=== PATIENT | male | born 1940 | race Caucasian/White ===

== ENCOUNTER → 2016-09-24 | Outpatient (CLI) | payer OTHER ==
[~2016-09-24] MED LIST: ADVAIR HFA120 INHALA IH; AMLODIPINE BESYL5 MG PO; ASPIRIN81 M2 PO; ATROVENT 00.5 MG/2.5 IH; AUGMENTIN875 MG PO; CARDURA2 M1 PO; CYANOCOBALAM1000 MCG PO; DAILY MULTIPLE1 EACH PO; DIABETIC TUSSI118 ML PO; DITROPAN5 MG PO; DOCUSATE SODIU100 MG PO; DOXAZOSIN MESYLA8 MG PO; DUONEB 2.5-0.5 M3 ML AEROSOL; FAMOTIDINE20 MG PO; FERROUS SULFAT325 MG PO; FOLIC ACID0.4 MG PO; GABAPENTIN300 MG PO; HUMULIN; HUMULIN N100 UNITS/ SC; LINEZOLID600 MG PO; LOPID PO; LOPID600 MG PO; MELATONIN3 MG PO; NAPROXEN500 MG PO; NON-ASPIRIN PA325 MG PO; NORVASC10 MG PO; NOVOLIN N100 UNITS/ SC; NOVOLOG PE100 UNITS/ SC; OMEPRAZOLE20 MG PO; PROVENTIL,2.5 MG/3 M IH; SANTYL30 GM TP; SENNA-S TABLET1 EACH PO; SIMVASTATIN10 MG PO; TAMSULOSIN HCL0.4 MG PO; TYLENOL REGULA325 MG PO; VENTOLIN HFA18 GM IH; Xylocaine 5% TP
== END | disposition home or self-care (01) ==
LOC: AMB 09:58
PROC: 0D20XUZ Change Feeding Device in Upper Intestinal Tract, External Approach (ICD-10-PCS; principal; 2016-09-24)
DX: K94.23 Gastrostomy malfunction (principal); R10.13 Epigastric pain
CPT/HCPCS: 99212; B4087

== ENCOUNTER 2016-12-24 16:38 | Emergency (ER) | payer OTHER ==
[~2016-12-24] VITALS: Ht 167.6 cm; Wt 68.0 kg
[2016-12-24 17:38] LABS: CARBON DIOXIDE (BICARBONATE) 30.6 MEQ/L (20-31)
[2016-12-24 17:40] LABS: HEMATOCRIT 43.4 % (38.0-50.0); MCH 28.6 PG (29.0-34.0); MCHC 32.3 G/DL (30.0-36.0); MCV 88.8 FL (86-99); MEAN PLAT.VOLUME 13.1 uM^3 (9.0-12.4); PLATELET COUNT 178 K/uL (156-360); RBC DIS.WIDTH-CV 13.5 % (11.8-14.6); RBC DIS.WIDTH-SD 43.9 % (39-53); RED BLOOD COUNT 4.89 M/uL (4.00-5.50); WHITE BLOOD COUNT 9.8 K/uL (4.1-10.2)
[2016-12-24 17:50] LABS: CHLORIDE 101 mEq/L (99-109); POTASSIUM 5.1 mEq/L (3.7-5.4); SODIUM 140 mEq/L (136-147)
[2016-12-24 17:52] LABS: GLUCOSE 616 mg/dL (70-99)
[2016-12-24 17:53] LABS: ANION GAP 15 MEQ/L (2-14)
[2016-12-24 17:55] LABS: GFR ESTIMATE (CALCULATED) > 59 mL/min/
[2016-12-24 17:56] LABS: UREA NITROGEN (BUN) 41 mg/dL (9-23)
[2016-12-24 18:09] LABS: ADD MIUA? NO; BILIRUBIN NEGATIVE; BLOOD NEGATIVE; COLOR YELLOW ((YELLOW)); GLUCOSE (STRIP) >=500; KETONES 20; LEUKOCYTES NEGATIVE; NITRITE NEGATIVE; PROTEIN (STRIP) NEGATIVE; SPECIFIC GRAVITY 1.028 (1.000-1.030); UCUL ADDED? NO; UROBILINOGEN 0.2 MG/DL (0.2-1.0)
[2016-12-24 19:58] LABS: POINT-OF-CARE METER ID UU13113702
[2016-12-24 20:23] VITALS: BP 128/78
== END 2016-12-24 20:33 | disposition home or self-care (01) ==
LOC: EME 16:38
PROVIDERS: Emergency Medicine
DX: E11.65 Type 2 diabetes mellitus with hyperglycemia (principal); B02.9 Zoster without complications; Z79.4 Long term (current) use of insulin; I10 Essential (primary) hypertension
CPT/HCPCS: 80048; 81003; 82010; 82803; 82948; 85027; 99281; 99285; J7030

== ENCOUNTER 2017-01-10 18:33 | Emergency (ER) | payer OTHER ==
[~2017-01-10] VITALS: Ht 180.3 cm; Wt 74.1 kg
[2017-01-10 18:54] LABS: POINT-OF-CARE METER ID UU13113747
[2017-01-10 19:53] LABS: HEMATOCRIT 41.9 % (38.0-50.0); MCH 28.7 PG (29.0-34.0); MCHC 32.5 G/DL (30.0-36.0); MCV 88.4 FL (86-99); RBC DIS.WIDTH-SD 45.1 % (39-53); RED BLOOD COUNT 4.74 M/uL (4.00-5.50); WHITE BLOOD COUNT 6.6 K/uL (4.1-10.2)
[2017-01-10 19:56] LABS: ADD MIUA? NO; BILIRUBIN NEGATIVE; BLOOD NEGATIVE; COLOR YELLOW ((YELLOW)); GLUCOSE (STRIP) NEGATIVE; KETONES NEGATIVE; LEUKOCYTES NEGATIVE; NITRITE NEGATIVE; PROTEIN (STRIP) NEGATIVE; SPECIFIC GRAVITY 1.013 (1.000-1.030); UCUL ADDED? NO; UROBILINOGEN 0.2 MG/DL (0.2-1.0)
[2017-01-10 20:02] LABS: CHLORIDE 104 mEq/L (99-109); SODIUM 142 mEq/L (136-147)
[2017-01-10 20:03] LABS: MEAN PLAT.VOLUME 10.8 uM^3 (9.0-12.4); PLATELET COUNT 268 K/uL (156-360)
[2017-01-10 20:04] LABS: GLUCOSE 81 mg/dL (70-99)
[2017-01-10 20:05] LABS: ANION GAP 8 MEQ/L (2-14)
[2017-01-10 20:06] LABS: TOTAL BILIRUBIN 0.3 mg/dL (0.0-1.0)
[2017-01-10 20:07] LABS: ALKALINE PHOSPHATASE 109 IU/L (3-129)
[2017-01-10 20:08] LABS: GFR ESTIMATE (CALCULATED) > 59 mL/min/
[2017-01-10 20:09] LABS: UREA NITROGEN (BUN) 24 mg/dL (9-23)
[2017-01-10 20:38] LABS: POINT-OF-CARE METER ID UU13113747
[2017-01-10 21:24] VITALS: BP 129/65
== END 2017-01-10 21:26 | disposition home or self-care (01) ==
LOC: EME 18:33
PROVIDERS: Emergency Medicine
DX: E11.649 Type 2 diabetes mellitus with hypoglycemia without coma (principal); R51 Headache; F79 Unspecified intellectual disabilities; I10 Essential (primary) hypertension; Z79.4 Long term (current) use of insulin
CPT/HCPCS: 71010; 80053; 81003; 82948; 85027; 99281; 99285

== ENCOUNTER → 2017-04-10 | Outpatient (CLI) | payer OTHER | END | disposition home or self-care (01) | DX: R13.14 Dysphagia, pharyngoesophageal phase (principal); R13.11 Dysphagia, oral phase; K21.9 Gastro-esophageal reflux disease without esophagitis; Z87.01 Personal history of pneumonia (recurrent) | CPT/HCPCS: 92611 GN; G8996 GN; G8997 GN; G8998 GN ==

== ENCOUNTER 2017-09-04 14:29 | Inpatient (IN) | payer OTHER ==
[~2017-09-04] VITALS: Ht 172.7 cm; Wt 79.0 kg
[2017-09-04 15:59] LABS: BASOPHIL (%) 0.2 % (0-1); EOSINOPHIL (%) 0.2 % (0-5); HEMATOCRIT 36.9 % (38.0-50.0); HEMOGLOBIN 12.1 G/DL (12.5-16.6); IMMATURE GRANULOCYTE (%) 0.5 % (0.0-0.7); LYMPHOCYTE (%) 5.6 % (15-42); LYMPHOCYTE COUNT 0.5 K/uL (1.0-2.8); MCH 28.5 PG (29.0-34.0); MCHC 32.8 G/DL (30.0-36.0); MONOCYTE (%) 9.8 % (3-12); MONOCYTE COUNT 0.8 K/uL (0-0.8); NEUTROPHIL (%) 83.7 % (45-76); NEUTROPHIL COUNT 6.9 K/uL (1.8-6.4); PLATELET COUNT 233 K/uL (156-360); RBC DIS.WIDTH-CV 13.9 % (11.8-14.6); RBC DIS.WIDTH-SD 44.7 % (39-53); RED BLOOD COUNT 4.24 M/uL (4.00-5.50); WHITE BLOOD COUNT 8.2 K/uL (4.1-10.2)
[2017-09-04 16:05] LABS: INTER. NORMALIZED RATIO 1.2
[2017-09-04 16:08] LABS: PTT 29.5 SEC (25-37)
[2017-09-04 16:11] LABS: ALBUMIN 3.2 g/dL (3.2-4.8); CHLORIDE 97 mEq/L (99-109); POTASSIUM 4.8 mEq/L (3.7-5.4); SODIUM 139 mEq/L (136-147)
[2017-09-04 16:13] LABS: GLUCOSE 205 mg/dL (70-99)
[2017-09-04 16:14] LABS: TOTAL PROTEIN 7.3 g/dL (6.4-8.3)
[2017-09-04 16:15] LABS: TOTAL BILIRUBIN 0.3 mg/dL (0.0-1.0)
[2017-09-04 16:16] LABS: APPEARANCE SL.HAZY ((CLEAR)); BILIRUBIN NEGATIVE; BLOOD MODERATE; COLOR YELLOW ((YELLOW)); GLUCOSE (STRIP) >=500; KETONES 5; LEUKOCYTES NEGATIVE; NITRITE NEGATIVE; PROTEIN (STRIP) 100; SPECIFIC GRAVITY 1.024 (1.000-1.030)
[2017-09-04 16:17] LABS: ALKALINE PHOSPHATASE 114 IU/L (3-129); GFR ESTIMATE (CALCULATED) > 59 mL/min/ (58.99-99999)
[2017-09-04 16:18] LABS: UREA NITROGEN (BUN) 41 mg/dL (9-23)
[2017-09-04 16:19] LABS: AST (GOT) 22 IU/L (2-34)
[2017-09-04 16:20] LABS: ALT (GPT) 17 IU/L (3-49); LIPASE 3 U/L (1.0-51.0)
[2017-09-04 16:21] LABS: TROP-I INTERPRETATION NEGATIVE; TROPONIN-I 0.03 ng/mL (0.0-0.30)
[2017-09-04 16:26] LABS: BACTERIA NONE SEEN /HPF; EPITHELIAL CELLS RARE /HPF; MUCUS TRACE /LPF; RED BLOOD CELLS TNTC /HPF (0-5); UCUL ADDED? YES
[2017-09-04] MEDS ORDERED: LANTUS 10100 UNITS/ SC (18:58)
[2017-09-04] MEDS ORDERED: ALBUTEROL2.5 MG/3 M IH (18:59)
[2017-09-04] MEDS ORDERED: AMLODIPINE BESY10 MG GT (19:00)
[2017-09-04] MEDS ORDERED: ATROVENT 00.5 MG/2.5 IH (19:00)
[2017-09-04] MEDS ORDERED: PRILOSEC10 M1 GT (19:01)
[2017-09-04] MEDS ORDERED: MELATONIN1 MG/4 ML GT (19:01)
[2017-09-04] MEDS ORDERED: FLOMAX0.4 MG GT (19:01)
[2017-09-04] MEDS ORDERED: NEURONTIN250 MG/5 M GT (19:02)
[2017-09-04] MEDS ORDERED: GLUCOPHAGE500 MG GT (19:02)
[2017-09-04] MEDS ORDERED: BIOTENE PBF473 ML MM (19:02)
[2017-09-04] MEDS ORDERED: ANTI-DIARR1 MG/7.5 M PO (19:03)
[2017-09-04] MEDS ORDERED: CIPRO500 MG GT (19:03)
[2017-09-04] MEDS ORDERED: CHILDREN'S160 MG/14 GT (19:04)
[2017-09-04] MEDS ORDERED: VOLTAREN 1% GE100 GM TP (19:04)
[2017-09-04 19:50] VITALS: BP 108/59
[2017-09-04 21:31] LABS: HEMATOCRIT 30.8 % (38.0-50.0); HEMOGLOBIN 10.2 G/DL (12.5-16.6); MCH 29.7 PG (29.0-34.0); MCHC 33.1 G/DL (30.0-36.0); MCV 89.5 FL (86-99); PLATELET COUNT 207 K/uL (156-360); RBC DIS.WIDTH-SD 45.6 % (39-53); RED BLOOD COUNT 3.44 M/uL (4.00-5.50); WHITE BLOOD COUNT 7.5 K/uL (4.1-10.2)
[2017-09-04 21:50] VITALS: BP 108/59
[2017-09-05] VITALS: BP 118/58
[2017-09-05 04:07] VITALS: BP 109/55
[2017-09-05 06:11] LABS: CHLORIDE 106 MEQ/L (99-109); CREATININE 0.7 MG/DL (0.6-1.3); GFR ESTIMATE (CALCULATED) > 59 mL/min/ (58.99-99999); SODIUM 142 MEQ/L (136-147); UREA NITROGEN (BUN) 30 mg/dL (9-23)
[2017-09-05 06:14] LABS: GLUCOSE 117 mg/dL (70-99)
[2017-09-05 07:21] VITALS: BP 97/59
[2017-09-05 12:53] VITALS: BP 104/60
[2017-09-05 15:10] VITALS: BP 125/68
[2017-09-05 19:35] VITALS: BP 128/70
[2017-09-06 00:01] VITALS: BP 112/64
[2017-09-06 04:25] VITALS: BP 120/64
[2017-09-06 07:32] VITALS: BP 112/71
[2017-09-06 14:55] VITALS: BP 110/68
[2017-09-06 21:00] VITALS: BP 116/68
[2017-09-07] VITALS (7 sets, daily range): BP systolic 100–136; BP diastolic 68–84
[2017-09-07 05:37] LABS: BASOPHIL (%) 0.4 % (0-1); EOSINOPHIL (%) 1.9 % (0-5); EOSINOPHIL COUNT 0.1 K/uL (0-0.3); HEMATOCRIT 36.9 % (38.0-50.0); HEMOGLOBIN 11.5 G/DL (12.5-16.6); LYMPHOCYTE (%) 16.8 % (15-42); LYMPHOCYTE COUNT 1.2 K/uL (1.0-2.8); MCHC 31.2 G/DL (30.0-36.0); MCV 89.8 FL (86-99); MONOCYTE (%) 8.1 % (3-12); MONOCYTE COUNT 0.6 K/uL (0-0.8); NEUTROPHIL (%) 71.8 % (45-76); PLATELET COUNT 324 K/uL (156-360); RBC DIS.WIDTH-CV 14.6 % (11.8-14.6); RBC DIS.WIDTH-SD 47.6 % (39-53); RED BLOOD COUNT 4.11 M/uL (4.00-5.50); WHITE BLOOD COUNT 6.9 K/uL (4.1-10.2)
[2017-09-07 06:03] LABS: ALBUMIN 2.5 G/DL (3.2-4.8); ALKALINE PHOSPHATASE 83 IU/L (3-129); ALT (GPT) 23 IU/L (3-49); AST (GOT) 22 IU/L (2-34); CHLORIDE 108 MEQ/L (99-109); CREATININE 0.7 MG/DL (0.6-1.3); GFR ESTIMATE (CALCULATED) > 59 mL/min/ (58.99-99999); GLUCOSE 202 mg/dL (70-99); POTASSIUM 4.9 MEQ/L (3.7-5.4); SODIUM 146 MEQ/L (136-147); TOTAL BILIRUBIN 0.2 MG/DL (0.0-1.0); TOTAL PROTEIN 5.5 G/DL (6.4-8.3); UREA NITROGEN (BUN) 32 mg/dL (9-23)
[2017-09-08 01:27] VITALS: BP 118/65
[2017-09-08 05:40] VITALS: BP 132/75
[2017-09-08 06:04] LABS: HEMATOCRIT 38.4 % (38.0-50.0); MCH 27.9 PG (29.0-34.0); MCHC 31.3 G/DL (30.0-36.0); MCV 89.3 FL (86-99); PLATELET COUNT 406 K/uL (156-360); RBC DIS.WIDTH-CV 14.6 % (11.8-14.6); RBC DIS.WIDTH-SD 47.8 % (39-53); WHITE BLOOD COUNT 9.2 K/uL (4.1-10.2)
[2017-09-08 06:28] LABS: ALBUMIN 2.7 G/DL (3.2-4.8); ALKALINE PHOSPHATASE 98 IU/L (3-129); ALT (GPT) 33 IU/L (3-49); CHLORIDE 107 MEQ/L (99-109); CREATININE 0.7 MG/DL (0.6-1.3); GFR ESTIMATE (CALCULATED) > 59 mL/min/ (58.99-99999); GLUCOSE 253 mg/dL (70-99); POTASSIUM 5.2 MEQ/L (3.7-5.4); SODIUM 147 MEQ/L (136-147); TOTAL BILIRUBIN 0.2 MG/DL (0.0-1.0); TOTAL PROTEIN 5.8 G/DL (6.4-8.3); UREA NITROGEN (BUN) 38 mg/dL (9-23)
[2017-09-08 06:34] LABS: AST (GOT) 35 IU/L (2-34)
[2017-09-08] MEDS ORDERED: AUGMENTIN875 MG PO (06:54)
[2017-09-08 08:11] VITALS: BP 129/80
[2017-09-08 12:02] VITALS: BP 115/70
[2017-09-08 15:51] VITALS: BP 115/70
== END 2017-09-08 18:10 | disposition home or self-care (01) | DRG 690 ==
LOC: EME 14:29 → 4EAST 19:46 → EDOF 19:46 → 4EAST 19:46 → ENRESERV 20:19 → 4EAST 21:42 → ENPENDDIS 09-08 → 4EAST 09-08 18:10
PROVIDERS: Emergency Medicine; Hospitalist; Internal Medicine
DX: N39.0 Urinary tract infection, site not specified (principal); E11.9 Type 2 diabetes mellitus without complications; I10 Essential (primary) hypertension; K56.7 Ileus, unspecified; Z93.1 Gastrostomy status; J98.11 Atelectasis; R78.81 Bacteremia; B95.4 Other streptococcus as the cause of diseases classified elsewhere
CPT/HCPCS: 71045; 74177; 80048; 80053; 81003; 82948; 83605; 83690; 84484; 85025; 85027; 85610; 85730; 87040; 87076; 87077; 87086; 87185; 87801; 93306; 94640; 94760; 94799; 99281; 99285; A6214; J0696; J1644; J1815; J1956; J2405; J2543; J3370; J7030; J7040; S0028

== ENCOUNTER 2017-09-09 09:27 | Inpatient (IN) | payer OTHER ==
[~2017-09-09] VITALS: Ht 167.6 cm; Wt 75.8 kg
[~2017-09-09 09:27] MED LIST changes: +ALBUTEROL2.5 MG/3 M IH; +AMLODIPINE BESY10 MG GT; +ANTI-DIARR1 MG/7.5 M PO; +BIOTENE PBF473 ML MM; +CHILDREN'S160 MG/14 GT; +CIPRO500 MG GT; +FLOMAX0.4 MG GT; +GLUCOPHAGE500 MG GT; +LANTUS 10100 UNITS/ SC; +MELATONIN1 MG/4 ML GT; +NEURONTIN250 MG/5 M GT; +PRILOSEC10 M1 GT; +VOLTAREN 1% GE100 GM TP
[2017-09-09 10:06] LABS: BASOPHIL (%) 0.5 % (0-1); BASOPHIL COUNT 0.1 K/uL (0-0.1); EOSINOPHIL (%) 1.7 % (0-5); EOSINOPHIL COUNT 0.2 K/uL (0-0.3); HEMATOCRIT 36.9 % (38.0-50.0); HEMOGLOBIN 11.7 G/DL (12.5-16.6); IMMATURE GRANULOCYTE (%) 1.5 % (0.0-0.7); LYMPHOCYTE COUNT 1.3 K/uL (1.0-2.8); MCH 28.7 PG (29.0-34.0); MCHC 31.7 G/DL (30.0-36.0); MCV 90.7 FL (86-99); MONOCYTE (%) 5.8 % (3-12); MONOCYTE COUNT 0.6 K/uL (0-0.8); NEUTROPHIL (%) 78.5 % (45-76); NEUTROPHIL COUNT 8.6 K/uL (1.8-6.4); PLATELET COUNT 442 K/uL (156-360); RBC DIS.WIDTH-CV 14.6 % (11.8-14.6); RBC DIS.WIDTH-SD 49.1 % (39-53); RED BLOOD COUNT 4.07 M/uL (4.00-5.50)
[2017-09-09 10:18] LABS: CHLORIDE 103 mEq/L (99-109); SODIUM 144 mEq/L (136-147)
[2017-09-09 10:19] LABS: ALBUMIN 2.7 g/dL (3.2-4.8)
[2017-09-09 10:21] LABS: GLUCOSE 326 mg/dL (70-99)
[2017-09-09 10:24] LABS: SERUM ETHYL ALCOHOL < 10 mg/dL
[2017-09-09 10:25] LABS: ALKALINE PHOSPHATASE 105 IU/L (3-129); CREATININE 0.9 mg/dL (0.6-1.3); GFR ESTIMATE (CALCULATED) > 59 mL/min/ (58.99-99999)
[2017-09-09 10:26] LABS: UREA NITROGEN (BUN) 45 mg/dL (9-23)
[2017-09-09 10:28] LABS: LIPASE 5 U/L (1.0-51.0)
[2017-09-09 10:35] LABS: ALT (GPT) 50 IU/L (3-49); AST (GOT) 38 IU/L (2-34); TOTAL BILIRUBIN 0.2 mg/dL (0.0-1.0); TOTAL PROTEIN 6.2 g/dL (6.4-8.3)
[2017-09-09 10:52] LABS: APPEARANCE CLEAR ((CLEAR)); BILIRUBIN NEGATIVE; BLOOD NEGATIVE; COLOR YELLOW ((YELLOW)); GLUCOSE (STRIP) 50; KETONES NEGATIVE; LEUKOCYTES NEGATIVE; NITRITE NEGATIVE; PROTEIN (STRIP) NEGATIVE; SPECIFIC GRAVITY 1.026 (1.000-1.030); UCUL ADDED? NO; UROBILINOGEN 0.2 MG/DL (0.2-1.0)
[2017-09-09 18:19] VITALS: BP 133/72
[2017-09-10 00:17] VITALS: BP 128/69
[2017-09-10 03:48] VITALS: BP 137/65
[2017-09-10 06:26] LABS: HEMATOCRIT 35.2 % (38.0-50.0); MCH 28.4 PG (29.0-34.0); MCHC 31.3 G/DL (30.0-36.0); PLATELET COUNT 417 K/uL (156-360); RBC DIS.WIDTH-CV 14.6 % (11.8-14.6); RBC DIS.WIDTH-SD 48.5 % (39-53); RED BLOOD COUNT 3.87 M/uL (4.00-5.50); WHITE BLOOD COUNT 11.6 K/uL (4.1-10.2)
[2017-09-10 06:47] LABS: ALBUMIN 2.5 G/DL (3.2-4.8); ALKALINE PHOSPHATASE 77 IU/L (3-129); ALT (GPT) 33 IU/L (3-49); AST (GOT) 23 IU/L (2-34); CHLORIDE 107 MEQ/L (99-109); CREATININE 0.7 MG/DL (0.6-1.3); GFR ESTIMATE (CALCULATED) > 59 mL/min/ (58.99-99999); POTASSIUM 4.5 MEQ/L (3.7-5.4); SODIUM 148 MEQ/L (136-147); TOTAL PROTEIN 5.4 G/DL (6.4-8.3); UREA NITROGEN (BUN) 35 mg/dL (9-23)
[2017-09-10 06:51] LABS: GLUCOSE 137 mg/dL (70-99); TOTAL BILIRUBIN 0.3 MG/DL (0.0-1.0)
[2017-09-10 08:07] VITALS: BP 111/60
[2017-09-10 12:03] VITALS: BP 135/75
[2017-09-10 16:19] VITALS: BP 145/78
[2017-09-10 20:11] VITALS: BP 133/79
[2017-09-11] VITALS (7 sets, daily range): BP systolic 117–137; BP diastolic 60–75
[2017-09-11 07:02] LABS: CREATININE 0.7 MG/DL (0.6-1.3); GFR ESTIMATE (CALCULATED) > 59 mL/min/ (58.99-99999); UREA NITROGEN (BUN) 25 mg/dL (9-23)
[2017-09-12 04:21] VITALS: BP 110/58
[2017-09-12 07:42] LABS: HEMATOCRIT 32.7 % (38.0-50.0); HEMOGLOBIN 10.2 G/DL (12.5-16.6); MCH 28.7 PG (29.0-34.0); MCHC 31.2 G/DL (30.0-36.0); MCV 91.9 FL (86-99); PLATELET COUNT 414 K/uL (156-360); RBC DIS.WIDTH-CV 14.1 % (11.8-14.6); RBC DIS.WIDTH-SD 47.3 % (39-53); RED BLOOD COUNT 3.56 M/uL (4.00-5.50); WHITE BLOOD COUNT 13.8 K/uL (4.1-10.2)
[2017-09-12 08:03] VITALS: BP 115/58
[2017-09-12 08:11] LABS: ALKALINE PHOSPHATASE 76 IU/L (3-129); ALT (GPT) 27 IU/L (3-49); AST (GOT) 20 IU/L (2-34); CHLORIDE 105 MEQ/L (99-109); CREATININE 0.7 MG/DL (0.6-1.3); GFR ESTIMATE (CALCULATED) > 59 mL/min/ (58.99-99999); GLUCOSE 151 mg/dL (70-99); POTASSIUM 4.8 MEQ/L (3.7-5.4); SODIUM 141 MEQ/L (136-147); TOTAL BILIRUBIN 0.3 MG/DL (0.0-1.0); TOTAL PROTEIN 4.8 G/DL (6.4-8.3); UREA NITROGEN (BUN) 27 mg/dL (9-23)
[2017-09-12 11:20] VITALS: BP 117/58
[2017-09-12 15:24] VITALS: BP 113/55
[2017-09-12 19:20] VITALS: BP 125/58
[2017-09-12 23:30] VITALS: BP 126/64
[2017-09-13 03:25] VITALS: BP 150/74
[2017-09-13 06:10] LABS: HEMATOCRIT 30.7 % (38.0-50.0); HEMOGLOBIN 9.7 G/DL (12.5-16.6); MCH 28.6 PG (29.0-34.0); MCHC 31.6 G/DL (30.0-36.0); MCV 90.6 FL (86-99); PLATELET COUNT 377 K/uL (156-360); RBC DIS.WIDTH-CV 14.7 % (11.8-14.6); RBC DIS.WIDTH-SD 48.3 % (39-53); RED BLOOD COUNT 3.39 M/uL (4.00-5.50); WHITE BLOOD COUNT 10.4 K/uL (4.1-10.2)
[2017-09-13 06:39] LABS: CHLORIDE 106 MEQ/L (99-109); CREATININE 0.6 MG/DL (0.6-1.3); GFR ESTIMATE (CALCULATED) > 59 mL/min/ (58.99-99999); GLUCOSE 139 mg/dL (70-99); POTASSIUM 4.2 MEQ/L (3.7-5.4); SODIUM 139 MEQ/L (136-147); UREA NITROGEN (BUN) 20 mg/dL (9-23)
[2017-09-13 08:23] VITALS: BP 136/59
[2017-09-13 16:03] VITALS: BP 136/61
[2017-09-14 00:05] VITALS: BP 114/58
[2017-09-14 06:10] LABS: HEMATOCRIT 31.5 % (38.0-50.0); HEMOGLOBIN 9.8 G/DL (12.5-16.6); MCH 28.3 PG (29.0-34.0); MCHC 31.1 G/DL (30.0-36.0); PLATELET COUNT 317 K/uL (156-360); RBC DIS.WIDTH-CV 14.5 % (11.8-14.6); RBC DIS.WIDTH-SD 47.8 % (39-53); RED BLOOD COUNT 3.46 M/uL (4.00-5.50); WHITE BLOOD COUNT 8.4 K/uL (4.1-10.2)
[2017-09-14 06:33] LABS: CHLORIDE 105 MEQ/L (99-109); CREATININE 0.5 MG/DL (0.6-1.3); GFR ESTIMATE (CALCULATED) > 59 mL/min/ (58.99-99999); GLUCOSE 156 mg/dL (70-99); POTASSIUM 4.6 MEQ/L (3.7-5.4); SODIUM 138 MEQ/L (136-147); UREA NITROGEN (BUN) 13 mg/dL (9-23)
[2017-09-14 07:44] VITALS: BP 130/69
[2017-09-14 15:22] VITALS: BP 129/60
[2017-09-15 00:09] VITALS: BP 117/63
[2017-09-15 08:13] VITALS: BP 107/55
[2017-09-15 11:51] VITALS: BP 133/65
[2017-09-15 16:10] VITALS: BP 130/60
[2017-09-16 00:23] VITALS: BP 126/62
[2017-09-16 08:10] VITALS: BP 118/57
== END 2017-09-16 15:37 | DRG 351 ==
LOC: EME 09:27 → 2EAST 15:22 → EDOF 15:22 → ENRESERV 15:28 → 2EAST 18:07
PROVIDERS: Emergency Medicine; Internal Medicine
PROC: 0YUA0JZ Supplement Bilateral Inguinal Region with Synthetic Substitute, Open Approach (ICD-10-PCS; principal; 2017-09-11)
DX: K40.00 Bilateral inguinal hernia, with obstruction, without gangrene, not specified as recurrent (principal); R78.81 Bacteremia; B95.4 Other streptococcus as the cause of diseases classified elsewhere; E11.65 Type 2 diabetes mellitus with hyperglycemia; E11.42 Type 2 diabetes mellitus with diabetic polyneuropathy; I10 Essential (primary) hypertension; I25.10 Atherosclerotic heart disease of native coronary artery without angina pectoris; F71 Moderate intellectual disabilities; I27.20 Pulmonary hypertension, unspecified; I45.10 Unspecified right bundle-branch block; I70.0 Atherosclerosis of aorta; E78.5 Hyperlipidemia, unspecified; K21.9 Gastro-esophageal reflux disease without esophagitis; N40.0 Benign prostatic hyperplasia without lower urinary tract symptoms; Z79.4 Long term (current) use of insulin; Z93.1 Gastrostomy status
CPT/HCPCS: 71045; 74177; 80048; 80053; 81003; 82565; 82948; 83605; 83690; 84520; 85025; 85027; 87040; 88302; 93005; 94640; 94669; 94799; 97530 GP; 99281; 99285; C1781; G0480; J0131; J0696; J1100; J1170; J1644; J1815; J2270; J2405; J3010; J7040; S0028